=== PATIENT | female | born 1990 | race Caucasian/White ===

== ENCOUNTER 2017-01-02 08:49 | Inpatient (IN) | payer OTHER ==
--- NOTE | 2017-01-08 12:58 | PDOC.LDHP ---
Labor and Delivery H&P Chief complaint: scheduled induction HPI: PT is a 26yo G1 @ 40.6 with BP elevated in office and home with recommendation for delivery for GHTN at term. Grav: 1 Para: 0 Current complications: gestational hypertension Abnormal US findings: No Current medications: pre-eliazar vitamins Previous surgical history: other (knee 2017) Allergies/Adverse Reactions: Allergies Allergy/AdvReac Type Severity Reaction Status Date / Time diphenhydramine Allergy trouble Verified 08/08/16 14:27 [From Benadryl] breathing Social history: none - Physical Exam Abnormal vital signs: 140s/90s in office General: breathing through contractions Lungs: nonlabored breathing Abdomen: gravid Extremeties: no edema - Vaginal Exam cm dilated: 2 Effacement: 50% Station: -3 - OB Labs Blood type: A RH: positive HIV: negative RPR: negative HEPSAg: negative 1 hour GCT: negative GBS: negative Additional Labs: Rub Immune - Assessment L&D Assessment: medically indicated induction - Plan Plan: admit to L&D, cervical ripening, labor augmentation if indicated, informed consent obtained, anesthesia consult for pain management -: 26yo G1 @ 40.6 w GHTN, admit, plan for cervical ripening and AROM. CMP ordered. Magnesium sulfate if severe features noted.
[2017-01-08 21:29] VITALS: BMI 37.1
[2017-01-08] MEDS: Lactated Ringer's 1,000 ML IV SCH (21:40)
[2017-01-08] MEDS ORDERED: LR 500 ML/Oxytocin 10 units 500 ML ONE (22:01)
[2017-01-08] MEDS ORDERED: LR / Pitocin 40 units/1000 ml 1,000 ML IV PRN (22:03)
[2017-01-08] MEDS ORDERED: Acetaminophen/Codeine 30-300mg Tablet PO PRN ×2 (22:03)
[2017-01-08] MEDS ORDERED: Promethazine HCl 25 MG/ML VIAL IM PRN (22:03)
[2017-01-08] MEDS ORDERED: LR 500 ML/Oxytocin 10 units 500 ML IV SCH ×2 (22:03)
[2017-01-08] MEDS ORDERED: Ondansetron HCl/PF 4 MG/2 ML Vial IVP PRN (22:03)
[2017-01-08] MEDS ORDERED: Lidocaine 1% (PF) 30 ML VIAL SC PRN (22:03)
[2017-01-08] MEDS ORDERED: Zolpidem Tartrate 5 MG TAB PO PRN (22:03)
[2017-01-08] MEDS ORDERED: Ibuprofen 800 MG TAB PO PRN (22:03)
[2017-01-08] MEDS ORDERED: Meperidine HCl/PF 25 MG/ML VIAL IM/IV PRN (22:03)
[2017-01-08 22:15] LABS: Hematocrit 30.6 % (36.0-47.0); Red Blood Cell (RBC) Count 3.38 mill/uL (4.20-5.40); White Blood Cell (WBC) Count 10.9 thou/uL (4.8-10.8)
[2017-01-08 22:35] LABS: ALT (SGPT) 19 U/L (8-55); AST (SGOT) 21 U/L (5-34); Alkaline Phosphatase 141 U/L (40-150); Anion Gap 12 mmol/L (10-20); BUN (Urea Nitrogen) 7 mg/dL (7.0-18.7); Bilirubin, Total 0.3 mg/dL (0.2-1.2); Calc. Creatinine Clearance 192 mL/min (70-130); Calcium 8.8 mg/dL (7.8-10.44); Carbon Dioxide 22 mmol/L (22-29); Chloride 106 mmol/L (98-107); Estimated GFR-MDRD Greater than 90; Globulin 2.8 g/dL (2.4-3.5)
[2017-01-09] MEDS: Lactated Ringer's 1,000 ML IV SCH ×2 (04:58→09:10)
--- NOTE | 2017-01-09 06:51 | PRG ---
DATE OF SERVICE: 01/09/2017 TIME OF INTERVENTION: 614 TIME OF DICTATION: 06 LOCATION: Labor and Delivery in bed 4. REASON FOR EVALUATION: Requested artificial rupture of membranes by physician. In brief, this is a patient of Dr. Barksdale's who is undergoing a trial of induction. I reviewed the f etal heart rate tracing and find the category to be category 1. Baseline heart tones are 120s to 13 0s. Contractions are irregular on tocodynamometer. I was asked by Dr. Barksdale to perform an amniotom y. I discussed the procedure with the patient and the patient underwent an artificial rupture of me mbranes with an Amniohook without complication. Scant clear fluid was noted. No complications were noted. Cervical exam is 3 cm dilated, 60% effaced, -1 station, mid position. The patient is curre ntly on Pitocin. Krystal, the patient's nurse, was also in in the room in attendance.
[2017-01-09] MEDS ORDERED: Fentanyl 4 mcg/Marc 0.1% Cadd 100 ML ONE (08:23)
[2017-01-09] MEDS ORDERED: ePHEDrine/0.9% NaCl/PF SYRINGE 50 mg/10 ml SLOW IVP PRN (10:04)
[2017-01-09] MEDS ORDERED: Eucerin (Mineral Oil/Petrolatum,White) 30 gm Jar TOP PRN (10:04)
[2017-01-09] MEDS ORDERED: Acetaminophen 325 MG TAB PO PRN (10:04)
[2017-01-09] MEDS ORDERED: Promethazine HCl 25 MG/ML VIAL IM PRN (10:04)
[2017-01-09] MEDS ORDERED: Ondansetron HCl/PF 4 MG/2 ML Vial IVP PRN ×2 (10:04→16:31)
[2017-01-09] MEDS ORDERED: Naloxone HCl 0.4 mg/ml Vial IVP PRN ×2 (10:04)
[2017-01-09] MEDS ORDERED: Lactated Ringer's 500 ML IV PRN (10:04)
[2017-01-09] MEDS ORDERED: Communication Order-Pharmacy FS SCH (10:15)
[2017-01-09] MEDS ORDERED: Fentanyl 4mcg/Marcaine 0.1% Cassette 100 ML EPIDURAL SCH (10:15)
--- NOTE | 2017-01-09 10:48 | PDOC.LDPN ---
Labor & Delivery Progress Note - Subjective Subjective: comfortable - Objective Vital signs reviewed and normal: yes General: resting Dilation: 7 Effacement: 90% Station: 0 FHT: category 1 Lowden contractions every: irreg w pit off AROM: clear fluid - Assessment (1) 40 weeks gestation of Code(s): Z3A.40 - 40 WEEKS GESTATION OF Current Visit: Yes Status : Acute (2) Gestational hypertension Code(s): O13.9 - GESTATIONAL HTN W/O SIGNIFICANT PROTEINURIA, UNSP TRIMESTER Current Visit: Yes Status: Acute Plan: continue plan of care -: IOL for GHTN, unit out of pit x 2 hours...waiting on it from pharmacy to restart , irreg ctx without, good progress before. FHT reassuring, BP normal to mild range.
--- NOTE | 2017-01-09 14:26 | PDOC.LDPN ---
Labor & Delivery Progress Note - Subjective Subjective: comfortable - Objective Vital signs reviewed and normal: yes General: resting Dilation: 10 Effacement: 100% Station: 3+ FHT: category 1 - Assessment (1) 40 weeks gestation of Code(s): Z3A.40 - 40 WEEKS GESTATION OF Current Visit: Yes Status : Acute (2) Gestational hypertension Code(s): O13.9 - GESTATIONAL HTN W/O SIGNIFICANT PROTEINURIA, UNSP TRIMESTER Current Visit: Yes Status: Acute Plan: continue plan of care -: Transitioning to 2nd stage.
--- NOTE | 2017-01-09 15:45 | PDOC.OPDEL ---
OB Operative/Delivery Note Delivery Dr/Surgeon: Shamir Pre-Delivery Diagnosis: medically indicated induction (GHTN) Weeks gestation: 41 Anesthesia: epidural - Findings A Sex: female Weight: 8 lb 4 oz - 5 min: 9 - 10 min: 9 - Additional Findings/Plan Placenta delivered: spontaneous Repaired Obstetrical Laceration: 1st degree (and right labial) Estimated blood loss: 400ml Post delivery plan: routine recovery
[2017-01-09] MEDS ORDERED: Adacel (T-DAP) 0.5 ML VIAL IM ONE (16:31)
[2017-01-09] MEDS ORDERED: Benzocaine/Menthol 20-0.5% 60 ML CAN TOP PRN (16:31)
[2017-01-09] MEDS ORDERED: Preparation H Ointment 28 GM TUBE PR PRN (16:31)
[2017-01-09] MEDS ORDERED: Acetaminophen/Codeine 30-300mg Tablet PO PRN ×2 (16:31)
[2017-01-09] MEDS ORDERED: Milk Of Magnesia 30 ML UDCUP PO PRN (16:31)
[2017-01-09] MEDS ORDERED: Bisacodyl 10 MG SUPP PR PRN (16:31)
[2017-01-09] MEDS ORDERED: Lanolin Ointment 7 GM TUBE TOP PRN (16:31)
[2017-01-09] MEDS ORDERED: LR / Pitocin 40 units/1000 ml 1,000 ML IV SCH (16:31)
[2017-01-09] MEDS: Ferrous Sulfate 325 MG TAB PO SCH (18:12)
[2017-01-09] MEDS ORDERED: Bupivacaine 0.25% HCL 30 ML VIAL ONE (20:07)
[2017-01-09] MEDS: Docusate (Surfak) 240 MG CAP PO SCH (21:08)
[2017-01-09] MEDS: Ibuprofen 800 MG TAB PO SCH (21:09)
[2017-01-10 05:14] LABS: Hematocrit 26.8 % (36.0-47.0); Mean Platelet Volume 7.3 fL (7.4-10.4); Red Blood Cell (RBC) Count 2.91 mill/uL (4.20-5.40); White Blood Cell (WBC) Count 16.1 thou/uL (4.8-10.8)
[2017-01-10] MEDS: Ibuprofen 800 MG TAB PO SCH ×3 (05:33→20:28)
--- NOTE | 2017-01-10 08:32 | PDOC.PP ---
Post Progress Note Post Day #: 1 -: doing well, nursing, min pain and bleeding PO intake tolerated: yes Flatus: yes Ambulation: yes Vital Signs (12 hours) Temp Pulse Resp BP Pulse Ox 01/10/17 08:08 98.0 F 60 20 127/65 01/10/17 08:00 98.0 F 60 20 100 01/10/17 04:10 98.4 F 54 L 18 01/10/17 03:56 117/69 01/10/17 00:30 98.4 F 54 L 18 132/64 Weight Weight 230 lb - Physical Examination General: NAD Abdominal: no distention Fundus firm & at: below umb Extremities: negative homans (B) Skin: no rash Psychiatric: A&Ox3 Result Diagrams: 01/10/17 04:08 01/08/17 21:40 Additional Labs: Post Labs Blood Type A POSITIVE 01/08/17 21:40 Hep Bs Antigen Non-Reactive S/CO (NonReactive) 01/08/17 21:40 (1) 40 weeks gestation of Code(s): Z3A.40 - 40 WEEKS GESTATION OF Status: Acute (2) Gestational hypertension Code(s): O13.9 - GESTATIONAL HTN W/O SIGNIFICANT PROTEINURIA, UNSP TRIMESTER Status: Acute - Assessment/Plan PPD1 doing well, no PIH sx, nursing well, likely DC tomorrow, plan for Iron PP.
[2017-01-10] MEDS: Docusate (Surfak) 240 MG CAP PO SCH ×2 (09:03→20:28)
[2017-01-10] MEDS: Prenatal Vitamin 1 TAB PO SCH (09:03)
[2017-01-10] MEDS: Ferrous Sulfate 325 MG TAB PO SCH ×2 (09:03→18:16)
[2017-01-11] MEDS: Ibuprofen 800 MG TAB PO SCH (06:06)
[2017-01-11] MEDS: Ferrous Sulfate 325 MG TAB PO SCH (08:22)
[2017-01-11] MEDS: Prenatal Vitamin 1 TAB PO SCH (08:22)
[2017-01-11] MEDS: Docusate (Surfak) 240 MG CAP PO SCH (08:22)
[2017-01-11 08:27] VITALS: BP 156/75; TEMP 98
--- NOTE | 2017-01-11 14:52 | DIS ---
DATE OF ADMISSION: 01/08/2017 DATE OF DISCHARGE: 01/11/2017 Principal procedure was by Dr. Barksdale, which was a spontaneous vaginal delivery. HOSPITAL COURSE: In brief, this is a patient of Dr. Barksdale who arrived for a medically indicated ind uction due to gestational hypertension at 41 weeks. For full details of that, H and P please turn to the notes by Dr. Barksdale. The patient progressed to spontaneous vaginal on 01/09/2017. I evaluated the patient on 01/11/2017, which was postpartu m day #2 and found her to be clinically stable. Temperature ranged from 98.4-98.0 with a pulse in t he 50s-60s, blood pressure ranged from 132/77-127/65. On laboratory assessment, hematocr it value was 26.8 down from an original value of 30.6. On physical exam, she is in no acute distress. Uterus was firm and nontender and there was no evide nce of heavy vaginal bleeding. She was clinically stable. The decision was made to discharge the p atient home on 01/11/2017. She was told to follow up with Dr. Barksdale in 3-4 weeks for routine postpa rtum management. A prescription was left by Dr. Barksdale for Motrin and ferrous sulfate as discharge m edications:
== END 2017-01-11 13:36 | disposition home or self-care (01) | DRG 775 ==
LOC: EDSTATUS 01-08 10:58 → L&D 01-08 20:39 → 3SE 01-09 18:46
PROVIDERS: ADMIT Obstetrics & Gynecology; ATTEND Obstetrics & Gynecology
PROC: 10907ZC Drainage of Amniotic Fluid, Therapeutic from Products of Conception, Via Natural or Artificial Opening (ICD-10-PCS; principal; 2017-01-08)
PROC: 3E0P3VZ Introduction of Hormone into Female Reproductive, Percutaneous Approach (ICD-10-PCS; 2017-01-08)
PROC: 10E0XZZ Delivery of Products of Conception, External Approach (ICD-10-PCS; 2017-01-09)
PROC: 0HQ9XZZ Repair Perineum Skin, External Approach (ICD-10-PCS; 2017-01-09)
DX: O13.4 Gestational [pregnancy-induced] hypertension without significant proteinuria, complicating childbirth (principal); O70.0 First degree perineal laceration during delivery; Z37.0 Single live birth; Z3A.41 41 weeks gestation of pregnancy
CPT/HCPCS: 36415; 80053; 85027; 86780; 86850; 86900; 86901; 87340; 90715; J2001; J7120; S0020

== ENCOUNTER 2019-01-13 16:37 | Emergency (ER) | payer OTHER | END 2019-01-13 17:01 | disposition home or self-care (01) | LOC: ERS 16:37 | DX: S29.012A Strain of muscle and tendon of back wall of thorax, initial encounter (principal); X50.0XXA Overexertion from strenuous movement or load, initial encounter | CPT/HCPCS: 99283 ==